=== PATIENT | female | born 1965 | race American Indian/Alaskan Native ===

== ENCOUNTER 2017-05-30 14:08 | Emergency (ER) | payer OTHER ==
[2017-05-30 14:22] VITALS: O2SAT 100
[2017-05-30] MEDS ORDERED: Aspirin 325 mg EC Tablets PO STA (14:48)
[2017-05-30 15:06] LABS: BASO % 0.6 % (0.0-2.0); EOS % 0.3 % (0.0-4.0); HEMATOCRIT 39.5 % (34.0-47.0); LYMPH # 1.2 K/uL (1.0-4.3); LYMPH % 25.3 % (20.0-40.0); MEAN CELL VOLUME 81.2 fL (81.0-99.0); MEAN CORPUSCULAR HEMOGLOBIN 26.8 pg (27.0-31.0); MEAN CORPUSCULAR HGB CONC 33.1 g/dL (33.0-37.0); MONO # 0.5 K/uL (0.0-0.8); MONO % 10.8 % (0.0-10.0); NRBC % 0.1 % (0.0-2.0); RED CELL DISTRIBUTION WIDTH 14.2 % (11.5-14.5); WHITE BLOOD COUNT 4.6 K/uL (4.8-10.8)
[2017-05-30 15:23] VITALS: BP 132/88; PULSE 88; RESP 18; TEMP 98
--- NOTE | 2017-05-30 15:24 | C.PDOC ---
History Of Present Illness 52 year old female presents to the ER with a complaint of vague palpitations while shopping today, associated with a numbness/tingling to the fingers. Patient states she panic at the time but now on arrival to the ER her symptoms have resolved. Denies any chest pain or SOB. Time Seen by Provider: 05/30/17 14:47 Chief Complaint (Nursing): Palpitations History Per: Patient History/Exam Limitations: no limitations Onset/Duration Of Symptoms: Hrs Current Symptoms Are (Timing): Gone Associated Symptoms: denies: Chest Pain, Dyspnea, Dizziness, Blurred Vision, Focal Weakness, Headache Quality Of Symptoms: Asymptomatic Exacerbating Factor(s): Pos: None Recent travel outside of the [place]: No Past Medical History Reviewed: Historical Data, Nursing Documentation, Vital Signs Vital Signs: Last Vital Signs Temp 98.0 F 05/30/17 15:23 Pulse 88 05/30/17 15:23 Resp 18 05/30/17 15:23 BP 132/88 05/30/17 15:23 Pulse Ox 100 05/31/17 00:54 - Medical History PMH: No Chronic Diseases - [facility] Procedures BREAST DX PROCEDURE NEC (03/15/03) EXCISION OF MOUTH NEC (02/17/01) LYMPHATIC STRUCT BIOPSY (02/17/01) OTHER SKIN & SUBQ I D (12/04/05) SUBTOTAL MASTECTOMY (03/15/03) Family History: States: No Known Family Hx - Social History Hx Alcohol Use: No Hx Substance Use: No - Immunization History Hx Tetanus Toxoid Vaccination: No Hx Influenza Vaccination: No Hx Pneumococcal Vaccination: No Review Of Systems Constitutional: Negative for: Fever, Chills Cardiovascular: Positive for: Palpitations Gastrointestinal: Negative for: Nausea, Vomiting Neurological: Positive for: Numbness (to fingers) Physical Exam - Physical Exam Appears: Non-toxic, No Acute Distress Skin: Normal Color, Warm, Dry Head: Atraumatic, Normacephalic Eye(s): bilateral: Normal Inspection Oral Mucosa: Moist Neck: Normal, Supple Chest: Symmetrical, No Tenderness Cardiovascular: Rhythm Regular Respiratory: Normal Breath Sounds, No Rales, No Rhonchi, No Wheezing Gastrointestinal/Abdominal: Soft, No Tenderness Neurological/Psych: Oriented x3, Normal Speech, Other (No focal deficits) ED Course And Treatment - Laboratory Results Result Diagrams: 12/11/17 15:01 ECG: Interpreted By Me ECG Rhythm: Sinus Rhythm ECG Interpretation: Normal Rate From EC O2 Sat by Pulse Oximetry: 100 Progress Note: Blood work, EKG, and CXR ordered. Aspirin administered. 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 menopausal. Disposition Doctor Will See Patient In The: Office Counseled Patient/Family Regarding: Studies Performed, Diagnosis - Disposition Referrals: [facility] [Outside] [place] [facility] [Outside] Disposition: HOME/ ROUTINE Disposition Time: 15:23 Condition: GOOD Additional Instructions: please follow-up with our [place] [facility] regarding your dysfunctional Uterine bleeding- requires follow-up Palpitations with a NORMAL ekg, may be anxiety/panic. Consider outpatient eval @ [facility] for anxiety as needed. Instructions: Palpitations (ED), Dysfunctional Uterine Bleeding (ED), Anxiety ( ED) Forms: [employer] (Vietnamese) - Clinical Impression Clinical Impression: Palpitations, Anxiety, Spotting - Scribe Statement The provider has reviewed the documentation as recorded by the Scribe Humza Leiva All medical record entries made by the Scribe were at my direction and personally dictated by me. I have reviewed the chart and agree that the record accurately reflects my personal performance of the history, physical exam, medical decision making, and the department course for this patient. I have also personally directed, reviewed, and agree with the discharge instructions and disposition.
--- NOTE | 2017-05-30 15:55 | RAD ---
PROCEDURE: CHEST RADIOGRAPH, 1 VIEW HISTORY: Shortness of breath COMPARISON: 04/20/2015. FINDINGS: LUNGS: The lungs are well inflated and clear. PLEURA: No pneumothorax or pleural fluid seen. CARDIOVASCULAR: Normal. OSSEOUS STRUCTURES: No significant abnormalities. VISUALIZED UPPER ABDOMEN: Normal. OTHER FINDINGS: None. IMPRESSION: No active pulmonary disease.
--- NOTE | 2017-05-31 21:02 | CARD ---
APPROVED REPORT EKG Measurement Heart [id number] <Conclusion> Normal sinus rhythm Possible Left atrial enlargement Borderline ECG
== END 2017-05-30 15:33 | disposition home or self-care (01) ==
LOC: C.ER 14:08
DX: R00.2 Palpitations (principal); F41.9 Anxiety disorder, unspecified; N93.9 Abnormal uterine and vaginal bleeding, unspecified